=== PATIENT | female | born 1995 | race Two or more races ===

== ENCOUNTER 2019-02-22 19:04 | Emergency (ER) | payer OTHER ==
[~2019-02-22] VITALS: Ht 160 cm; Wt 99.8 kg
[2019-02-22 21:26] VITALS: Ht 160 cm; Wt 99.8 kg
[2019-02-22 22:25] LABS: CALCIUM 8.7 mg/dL (8.5-10.1); CARBON DIOXIDE 26.3 mmol/L (21-32); CHLORIDE SERUM 104 mmol/L (98-107); CREATININE SERUM 0.9 mg/dL (0.6-1.0); GFR1 > 60 mL/min; GLUCOSE SERUM 96 mg/dL (74-106); POTASSIUM SERUM 3.8 mmol/L (3.5-5.1); SODIUM SERUM 139 mmol/L (136-145)
[2019-02-22 22:26] LABS: BASOPHIL % 0.7 % (0-2); PLATELET COUNT 422 x10^3mcL (130-400); RED CELL DISTRIBUTION WIDTH 15.5 % (11.5-14.5)
[2019-02-22 22:30] LABS: ALBUMIN 3.5 g/dL (3.4-5.0); ALKALINE PHOSPHATASE 129 U/L (46-116); ALT/SGPT 24 U/L (14-59); AST/SGOT 26 U/L (15-37); BILIRUBIN TOTAL 0.14 mg/dL (0.20-1.00); TOTAL PROTEIN, SERUM 7.7 g/dL (6.4-8.2)
[2019-02-23 06:59] VITALS: BP 122/77
== END 2019-02-23 00:58 | disposition home or self-care (01) ==
LOC: ED 19:04
DX: R10.30 Lower abdominal pain, unspecified (principal); Z98.890 Other specified postprocedural states
CPT/HCPCS: 36415